=== PATIENT | female | born 1980 | race Caucasian/White ===

== ENCOUNTER → 2016-04-21 | Outpatient (REF) | payer OTHER ==
[~2016-04-21] MED LIST: IBUP80TA PO; PERCOCET PO; PRENTAB74 PO
== END | disposition home or self-care (01) ==
LOC: M SFHCLERA 17:10
PROVIDERS: ATTEND Nurse Practitioner Family
DX: J11.1 Influenza due to unidentified influenza virus with other respiratory manifestations (principal)

== ENCOUNTER → 2017-11-26 | Outpatient (CLI) | payer BC, OTHER | LOC: M LRY 10:20 | DX: S49.91XA Unspecified injury of right shoulder and upper arm, initial encounter (principal); X58.XXXA Exposure to other specified factors, initial encounter; Y92.89 Other specified places as the place of occurrence of the external cause; Y93.9 Activity, unspecified; Y99.9 Unspecified external cause status ==

== ENCOUNTER → 2018-02-24 | Outpatient (REF) | payer OTHER ==
[2018-02-24 10:29] LABS: HEMATOCRIT 38.3 % (36.0-47.0); HEMOGLOBIN 12.7 g/dl (12.0-15.5); MEAN CORPUSCULAR HEMOGLOBIN 31.1 pg (27.0-33.0); MEAN CORPUSCULAR HGB CONC 33.2 g/dl (32.0-36.5); MEAN CORPUSCULAR VOLUME 93.9 fl (80.0-96.0); PLATELET COUNT, AUTOMATED 302 10^3/uL (150-450); RED BLOOD COUNT 4.08 10^6/uL (4.00-5.40); RED CELL DISTRIBUTION WIDTH 12.4 % (11.5-14.5); WHITE BLOOD COUNT 8.4 10^3/uL (4.0-10.0)
[2018-02-24 10:47] LABS: ESTIMATED AVERAGE GLUCOSE 103 MG/DL (60-110); HEMOGLOBIN A1c 5.2 %
[2018-02-24 11:09] LABS: ALBUMIN 3.9 GM/DL (3.2-5.2); ALBUMIN/GLOBULIN RATIO 1.22 (1.00-1.93); ALKALINE PHOSPHATASE 79 U/L (45-117); ALT/SGPT 30 U/L (12-78); ANION GAP 8 MEQ/L (8-16); AST/SGOT 17 U/L (7-37); BILIRUBIN,TOTAL 0.7 MG/DL (0.2-1.0); BLOOD UREA NITROGEN 16 MG/DL (7-18); CALCIUM LEVEL 8.7 MG/DL (8.5-10.1); CARBON DIOXIDE LEVEL 26 MEQ/L (21-32); CHLORIDE LEVEL 104 MEQ/L (98-107); CHOLESTEROL LEVEL 167 MG/DL (<200); CHOLESTEROL RISK RATIO 2.929 (<5); CREATININE FOR GFR 0.63 MG/DL (0.55-1.30); FREE T4 1.12 NG/DL (0.76-1.46); GLOMERULAR FILTRATION RATE > 60.0 (>60); GLUCOSE, FASTING 87 MG/DL (70-100); HDL CHOLESTEROL 57 MG/DL (>40); LDL CHOLESTEROL 101 MG/DL (<100); NON-HDL-C 110 MG/DL; POTASSIUM SERUM 4.3 MEQ/L (3.5-5.1); SODIUM LEVEL 138 MEQ/L (136-145); TOTAL PROTEIN 7.1 GM/DL (6.4-8.2); TRIGLYCERIDES LEVEL 45 MG/DL (<150)
[2018-02-24 11:24] LABS: TOTAL 25(OH) VITAMIN D 33.6 NG/ML (30.0-100.0)
== END ==
LOC: M SFHCPLAZ 08:06
DX: Z00.00 Encounter for general adult medical examination without abnormal findings (principal); R53.83 Other fatigue; Z13.220 Encounter for screening for lipoid disorders; E28.2 Polycystic ovarian syndrome; E55.9 Vitamin D deficiency, unspecified

== ENCOUNTER 2018-04-11 22:18 | Emergency (ER) | payer BC, OTHER ==
[~2018-04-11] VITALS: Ht 144.8 cm; Wt 77.3 kg
[2018-04-11] MEDS ORDERED: ADACEL/BOOSTRIX VACCINE (DIPHTH/PERTUSS/ACELL/TETANUS)0.5ML SYR (90715) IM ONE (23:00)
[2018-04-11 23:05] VITALS: BP 108/61
== END 2018-04-11 23:06 | disposition home or self-care (01) ==
LOC: M ED 22:18
DX: S00.01XA Abrasion of scalp, initial encounter (principal); W22.8XXA Striking against or struck by other objects, initial encounter; Y92.018 Other place in single-family (private) house as the place of occurrence of the external cause

== ENCOUNTER 2018-05-27 12:48 | Day surgery (SDC) | payer BC, OTHER ==
[~2018-05-27] VITALS: Ht 144.8 cm; Wt 73.9 kg
[2018-05-27] MEDS: LR 1,000 ML IV SCH ×2 (04:00→22:12)
[~2018-05-27 12:48] MED LIST changes: +LR 1,000 ML IV ONE
[2018-05-27] MEDS ORDERED: MIDAZOLAM INJ 2 MG/2 ML VIAL (J2250) As Ordered ONE (13:06)
[2018-05-27] MEDS ORDERED: dexameTHASONE 4 MG/ML 1ML VIAL (J1100) As Ordered ONE (13:06)
[2018-05-27] MEDS ORDERED: fentaNYL 250 MCG/5 ML INJECTION (J3010) As Ordered ONE (13:06)
[2018-05-27] MEDS ORDERED: ONDANSETRON 4MG/2ML VIAL (J2405) As Ordered ONE (13:06)
[2018-05-27] MEDS ORDERED: LIDOCAINE 2% INJ 100 MG/5 ML SDV (FOR ANES.) As Ordered ONE (13:06)
[2018-05-27] MEDS ORDERED: ROCURONIUM BROMIDE 50 MG/5 ML VIAL As Ordered ONE ×2 (13:06→17:02)
[2018-05-27] MEDS ORDERED: PROPOFOL 200 MG/20 ML VIAL As Ordered ONE (13:06)
[2018-05-27 13:13] LABS: HEMATOCRIT 38.8 % (36.0-47.0); HEMOGLOBIN 13.1 g/dl (12.0-15.5); MEAN CORPUSCULAR HGB CONC 33.8 g/dl (32.0-36.5); MEAN CORPUSCULAR VOLUME 91.9 fl (80.0-96.0); PLATELET COUNT, AUTOMATED 339 10^3/uL (150-450); RED BLOOD COUNT 4.22 10^6/uL (4.00-5.40); WHITE BLOOD COUNT 9.5 10^3/uL (4.0-10.0)
[2018-05-27 13:43] LABS: HCG, SERUM QUALITATIVE NEGATIVE (NEGATIVE)
[2018-05-27] MEDS ORDERED: METHYLENE BLUE 0.5% (5MG/ML) 10 ML AMP (PROVAYBLUE)(Q9968 PER 1MG) As Ordered ONE (14:51)
[2018-05-27] MEDS ORDERED: HYDROmorphone HCL 2 MG/ML 1ML VIAL (J1170) As Ordered ONE (16:08)
[2018-05-27] MEDS ORDERED: NEOSTIGMINE 10 MG/10 ML VIAL (J2710) As Ordered ONE (16:08)
[2018-05-27] MEDS ORDERED: GLYCOPYRROLATE INJ 0.2 MG/ML 2 ML VIAL As Ordered ONE (16:08)
[2018-05-27] MEDS ORDERED: KETOROLAC 60 MG/2 ML VIAL (J1885) As Ordered ONE (16:22)
[2018-05-27] MEDS ORDERED: SUGAMMADEX SODIUM 500 MG/5 ML VIAL (BRIDION) As Ordered ONE (18:18)
[2018-05-27] MEDS ORDERED: METOCLOPRAMIDE INJ 10MG/2ML VIAL (J2765) As Ordered ONE (18:21)
[2018-05-27] MEDS ORDERED: ceFAZolin 2 GM/D5W 50 ML IV BAG (J0690 PER 500MG) As Ordered ONE (19:35)
[2018-05-27] MEDS ORDERED: MORPHINE 1MG/ML IN 0.9% NACL 100ML IV BAG As Ordered ONE (20:21)
[2018-05-27] MEDS ORDERED: NALBUPHINE HCL 10 MG/ML AMP (J2300) IV PRN (20:30)
[2018-05-27] MEDS ORDERED: NALOXONE INJ 0.4 MG/1 ML VIAL (J2310) IV PRN (20:30)
[2018-05-27] MEDS ORDERED: fentaNYL 100 MCG/2 ML INJECTION (J3010) IV PRN (20:30)
[2018-05-27] MEDS ORDERED: ONDANSETRON 4MG/2ML VIAL (J2405) IV PRN (20:30)
[2018-05-27] MEDS ORDERED: MORPHINE 1MG/ML IN 0.9% NACL 100ML IV BAG IV PRN (20:30)
[2018-05-27] MEDS ORDERED: EPIDURAL/PCA KEYS XX PRN (20:30)
[2018-05-27] MEDS ORDERED: diphenhydrAMINE INJ 50MG/ML VIAL (J1200) IV PRN (20:30)
[2018-05-27] MEDS ORDERED: METOCLOPRAMIDE INJ 10MG/2ML VIAL (J2765) IV PRN (20:30)
[2018-05-27] MEDS ORDERED: LR 1,000 ML IV SCH (20:30)
[2018-05-27] MEDS ORDERED: PERCOCET 5MG/325MG TAB PO PRN (20:30)
[2018-05-27 22:00] VITALS: BP 117/71
[2018-05-27 22:30] VITALS: BP 117/66
[2018-05-27 23:00] VITALS: BP 109/64
[2018-05-28] VITALS: BP 114/63
[2018-05-28 01:00] VITALS: BP 110/61
[2018-05-28 02:00] VITALS: BP 104/55
[2018-05-28 03:00] VITALS: BP 106/58
[2018-05-28 06:52] LABS: HEMATOCRIT 29.2 % (36.0-47.0); MEAN CORPUSCULAR HEMOGLOBIN 30.8 pg (27.0-33.0); MEAN CORPUSCULAR HGB CONC 32.9 g/dl (32.0-36.5); MEAN CORPUSCULAR VOLUME 93.6 fl (80.0-96.0); PLATELET COUNT, AUTOMATED 261 10^3/uL (150-450); RED BLOOD COUNT 3.12 10^6/uL (4.00-5.40); WHITE BLOOD COUNT 13.2 10^3/uL (4.0-10.0)
[2018-05-28 06:55] LABS: HEMOGLOBIN 9.6 g/dl (12.0-15.5)
[2018-05-28 08:00] VITALS: BP 86/48
[2018-05-28] MEDS ORDERED: IBUPROFEN 600 MG TAB PO PRN (08:45)
[2018-05-28] MEDS ORDERED: NORCO, ANEXSIA 5/325MG TABLET (HYDROcodone/ACETAMINOPHEN) PO PRN (08:45)
[2018-05-28 09:30] VITALS: BP 86/48
--- NOTE | 2018-05-28 09:55 | RO ---
DATE OF PROCEDURE: 05/27/2018 PREPROCEDURE DIAGNOSES: Pain, bleeding and immobile uterus. POSTPROCEDURE DIAGNOSES: Pain, bleeding and immobile uterus with extensive adhesions, atypical adhesions noted. PROCEDURE: Robotic assisted hysterectomy with salpingectomy and cystourethroscopy for evaluation of the bladder abnormalities. SURGEON: Dr. Christy Osorio WELDING LEAD BURNER: None. ANESTHESIA: General endotracheal anesthesia. BRIEF DESCRIPTION OF PROCEDURE AND FINDINGS: Jyoti was brought to the operating room where sufficient general endotracheal anesthesia was induced. She was prepped, draped and positioned in the usual sterile fashion. She then had a uterine manipulator placed. We reached the cervix by palpation because as had been diagnosed preoperatively, she had a really immobile high cervix and uterus and could not actually see it from below using the weighted, but when we grasped it with tenaculum, we were able to and the uterus sounded to 11. We then placed the uterine manipulator and the Olivas catheter with the ability to backfill, then turned our attention to the abdomen. A transverse semilunar incision was then made below the umbilicus. Sharp and blunt dissection were continued through the subcutaneous tissue to the level of the rectus fascia which is elevated with Rafael clamps and transversely incised. Then the peritoneum bluntly entered. #0 Vicryl retention sutures were placed and Wiley cannula was placed under direct visualization in an open laparoscopic technique and CO2 insufflation was then begun. After adequate CO2 insufflation, the peritoneal cavity was visualized. There were some minor omental adhesions but then there were extensive dense, thick, tough adhesions of the uterus to the anterior abdominal wall in a transverse fashion maybe a quarter to half way down the anterior uterine wall. The ovaries were normal in appearance. The fallopian tubes had Filshie clips and some minor scarring consistent with her tubal history but were otherwise normal in appearance. There was no difficulty in taking down some of the filmy adhesions of the bowel and omentum to free that up so that we could get access to the tubes. Prior to that, we placed two left sided, one right side port for the robot. We then placed her in Trendelenburg and docked the robot as is typical and I moved to the console. Working from the console, we freed up those adhesions as already noted. The minor ones, ___omentum, bladder___ and bowel not using cautery just using cold scissors, and then isolated the left fallopian tube, we carefully cauterized and transected the mesentery to the tube without injuring the ovary and freed that up to the cornu. We then went to cauterize and transect the utero-ovarian suspensory ligament and there was some added vasculature there, much thicker vessels than are typically present, and then went to cauterize and transect the round as well and again from another set of artery and vein, again much thicker than is typically present but repeat evaluation showed no evidence that this was actually ureter and of course it did bleed slightly as we were dissecting. We turned our attention to the patient's right side, again freed the fallopian tube from the mesentery and left it attached to the uterus along with the Filshie clip that was there, and then again transected the utero-ovarian suspensory ligament and the large 6 mm vessels had been recruited to utero-ovarian suspensory ligament. Two sets there, again much more blood supply than is typically seen but although there appeared to be a vein and artery, the artery was clearly pulsing and running into the uterus rather than along the uterus so did not appear to be some kind of abnormal ureter but rather just redundant blood supply. I do not know whether the patient ever had her uterine vasculature tied off at any of her sections but certainly the thought occurred to me that she may have had that other blood supply disrupted because of this recruitment and again we ran into more vessels, just the vessel of Bossman in the round ligament but yet again another set of vessels. Having finally freed those, we began to dissect anteriorly. We worked cold because we had trouble really looking in the bladder. We would backfill and over and above where these adhesions were, the bladder filled over and appeared to be away but it extended cephalad anteriorly from where these adhesions attached to the uterus and so we erred on the side of caution and really peeled down the visceral peritoneum of the uterus rather than going toward the bladder and we worked cold so this was very tedious work with slow progress. As we were able, we cauterized the blood supply to the uterus as well and again we ran into far more vasculature than expected but we worked higher than typical and then just wedged out a section to try to stay as well away from ureters as possible and we had the ability to backfill the bladder so we felt we had a good identification of location and we then continued very carefully this dissection. The uterus was very much immobile and eventually in efforts to elevate the cervix, we ended up perforating with the manipulator, that did not happen until about longterm or a little more than longterm through the case and in part because the uterus really was not mobile very much. We continued our progress and we were eventually able to visualize posteriorly and feel that we had some blanching of the uterus and so the blood supply somewhat controlled and we made our initial colpotomy posteriorly and of course dissected down over those ureterosacrals and sort of dissected from above those leaving that wedge for support of the vaginal cuff and in an effort to minimize the risk of injuring ureter due to her atypical anatomy. As we continued dissecting anteriorly, it became apparent that that band of tissue was just a flat solid band, really obscuring that anatomy anteriorly as well as that extra blood supply which we ran into in multiple locations. We continued the dissection working cold so as not to injure bladder and eventually reached another plane and had a little more mobility of the uterus and were able to complete colpotomy and then remove the uterus through the vaginal cuff leaving it in the vagina to maintain pneumo. We then used V-loc suture to close the cuff being careful to incorporate the uterosacrals and to get good angle closure but also to incorporate vaginal wall because anteriorly as shown in the picture, one the uterus was released from those adhesions, there was a large segment of bladder wall visible. We were able to backfill and see that we did not have any perforation to this and we were able to see the Olivas but the band of adhesions was actually denser than the combined bands of anterior and posterior vaginal wall and so stretching anteriorly above the bladder, that scar tissue consistent with previous section is present and now the bladder is much more free but we worked careful to resupport the cuff to those ureterosacrals since of course it was no longer attached to the anterior tunnel wall. Having closed the cuff and reincorporated the uterosacrals and confirmed that we did not have an injury to the bladder, I did want to check the ureters because of the abnormality that the patient had and the scarring of the bladder, so we leveled it off, gave some Methylene blue and did a cystourethroscopy and in fact her right ureter is totally normal. She had normal jets of urine from the left but there is remodeling of the trigone with the ureter on the patient's left being midline and the distance of the trigone being closer to the urethra than on the right side so she is asymmetrical there. I believe that is remodeling rather than anything to do with today's case because there is no puckering of the wall anymore. I strongly suspect it has to do with years of that bladder being trapped in that scar tissue and the previous surgical changes but she had normal jets of urine bilaterally and in absence of any kind of cut or injury to the bladder fortunately. We then ended the cystoscopy and went back up and closed those robot wounds. Of course the CO2 had been allowed to escape the abdomen already. I closed the umbilical wound with #0 Vicryl retention sutures at the fascia and then #3-0 Vicryl in a subcuticular stitch at the skin which was then also used on the other three wounds and dry sterile dressings were then applied. Estimated blood loss for the procedure about 100 mL. Fluid replacement was Crystalloid. Complications: None but she did have personal abnormal anatomy found which resulted in a change of the case with the addition of the cystourethroscopy. CONDITION AND DISPOSITION: Jyoti tolerated the procedure well and was recovering in the recovery room in good condition. BRO
== END 2018-05-28 10:30 | disposition home or self-care (01) ==
LOC: M SDC 12:48 → M PED 21:44 → M SDC 05-28 10:30
PROVIDERS: ATTEND Obstetrics & Gynecology
DX: R10.2 Pelvic and perineal pain (principal); N94.10 Unspecified dyspareunia; E28.2 Polycystic ovarian syndrome; E66.9 Obesity, unspecified; G43.909 Migraine, unspecified, not intractable, without status migrainosus
CPT/HCPCS: 36415; 58571; 84703; 85027; 86850; 86900; 86901; 88307; 96360; 96361; J0690; J1100; J1170; J1885; J2250; J2405; J2765; J3010; Q9968

== ENCOUNTER 2018-07-08 11:08 | Day surgery (SDC) | payer BC, OTHER ==
[~2018-07-08] VITALS: Ht 149.9 cm; Wt 72.7 kg
[~2018-07-08 11:08] MED LIST changes: -LR 1,000 ML IV ONE
[2018-07-08] MEDS ORDERED: ONDANSETRON 4MG/2ML VIAL (J2405) IV ONE (12:00)
[2018-07-08] MEDS ORDERED: KETOROLAC 30 MG/ML VIAL (J1885) IV ONE (12:00)
[2018-07-08] MEDS ORDERED: NS 1,000 ML IV ONE (12:00)
--- NOTE | 2018-07-08 12:33 | REP ---
CT of the abdomen pelvis without IV or bowel contrast: Comparison is 11/19/2019 fifth teen. There is a 6.5 x 3.3 cm calculus in the distal left ureter at the UVJ. There is right hydroureter and hydronephrosis. There is a nonobstructive 8.4 mm calculus in in the right renal pelvis at the lower pole. There is a tiny 2 mm nonobstructive left renal calculus. There is no left hydronephrosis or hydroureter. There is no left ureteral calculus. The visualized lung cabrera are unremarkable. The unenhanced liver, gallbladder, pancreas, spleen, adrenals are unremarkable. The abdominal aorta, bowel and mesentery are unremarkable. Pelvis: There is an appendectomy. The terminal ileum is unremarkable. There is a hysterectomy. The vaginal cuff and adnexa are unremarkable. The bladder is unremarkable. There is no adenopathy or ascites. The pelvic bowel loops are unremarkable. Impression: Obstructive calculus in the distal right ureter at the UVJ measuring 3.3 x 6.5 cm. There is right hydronephrosis and hydroureter. Nonobstructive 2 mm left renal calculus. Appendectomy and hysterectomy. Electronically Signed by Kurt Saba MD 07/08/2018 12:23 P
[2018-07-08 13:04] LABS: ALBUMIN 4.3 GM/DL (3.2-5.2); ALT/SGPT 20 U/L (12-78); AMYLASE 49 U/L (25-115); BILIRUBIN,DIRECT 0.2 MG/DL (0.0-0.2); BILIRUBIN,TOTAL 0.9 MG/DL (0.2-1.0); BLOOD UREA NITROGEN 21 MG/DL (7-18); CALCIUM LEVEL 9.2 MG/DL (8.5-10.1); CARBON DIOXIDE LEVEL 27 MEQ/L (21-32); CHLORIDE LEVEL 103 MEQ/L (98-107); CREATININE FOR GFR 0.73 MG/DL (0.55-1.30); GLOMERULAR FILTRATION RATE > 60.0 (>60); GLUCOSE, FASTING 92 MG/DL (70-100); LIPASE 98 U/L (73-393); POTASSIUM SERUM 4.2 MEQ/L (3.5-5.1); SODIUM LEVEL 137 MEQ/L (136-145); TOTAL PROTEIN 7.7 GM/DL (6.4-8.2)
[2018-07-08 13:06] LABS: BASO % 0.2 % (0.0-1.0); HEMATOCRIT 38.7 % (36.0-47.0); HEMOGLOBIN 12.8 g/dl (12.0-15.5); LYMPH # 1.1 10^3/uL (1.5-4.5); LYMPH % 4.9 % (24.0-44.0); MEAN CORPUSCULAR HEMOGLOBIN 31.3 pg (27.0-33.0); MEAN CORPUSCULAR HGB CONC 33.1 g/dl (32.0-36.5); MEAN CORPUSCULAR VOLUME 94.6 fl (80.0-96.0); MONO # 1.2 10^3/uL (0.0-0.8); MONO % 5.8 % (0.0-5.0); NEUTROPHILS # 18.8 10^3/uL (1.8-7.7); NEUTROPHILS % 88.8 % (36.0-66.0); PLATELET COUNT, AUTOMATED 302 10^3/uL (150-450); RED BLOOD COUNT 4.09 10^6/uL (4.00-5.40); WHITE BLOOD COUNT 21.2 10^3/uL (4.0-10.0)
[2018-07-08] MEDS ORDERED: MORPHINE 4 MG/ML 1ML VIAL/SYRINGE (J2270) IV ONE (13:30)
[2018-07-08] MEDS ORDERED: MIDAZOLAM INJ 2 MG/2 ML VIAL (J2250) As Ordered ONE (15:36)
[2018-07-08] MEDS ORDERED: PROPOFOL 200 MG/20 ML VIAL As Ordered ONE ×2 (15:36→15:38)
[2018-07-08] MEDS ORDERED: fentaNYL 100 MCG/2 ML INJECTION (J3010) As Ordered ONE (15:36)
[2018-07-08] MEDS ORDERED: LIDOCAINE 2% INJ 100 MG/5 ML SDV (FOR ANES.) As Ordered ONE (15:36)
[2018-07-08] MEDS ORDERED: CONRAY-60 60% 50ML VIAL (Q9961) As Ordered ONE (15:36)
[2018-07-08] MEDS ORDERED: cefTRIAXone SOD 1 GM VIAL (J0696) As Ordered ONE (15:40)
--- NOTE | 2018-07-08 15:44 | SMCUROLCON ---
Urology Consultation General Date of Consultation 07/08/18 Reason For Consultation This patient is seen for Ureterolithias. History of Present Illness This is a 38 y/o F w/ a history of kidney stones, presenting to the ER w/ acute onset right flank pain x 24 hrs. She also notes n/v, but denies dysuria. She denies fever or chills. A CT A/P obtained in the ER was notable for an obstructing 6mm right UVJ stone as well as a nonobstructing 8mm right kidney stone. Her WBC was elevated to 20,000 and her UA was notable for 14 WBCs. Despite several doses of IV pain medication, her pain has been difficult to control. Past Medical History Medical History Nephrolithiasis Surgical Hstory Ureteroscopy ESWL Hysterectomy Appendectomy Medications Current Medications Current Medications Home Med (Med Rec Complete!) ASDIRECTED XX ; Start 07/08/18 at 14:30; Stop 07/08/18 at 14:30; Status DC Allergies Allergies: Coded Allergies: No Known Allergies (Unverified , 07/08/18) Review of Systems Constitutional: Denies: Fever, Chills Skin: Denies: Rash, Lesions, Breakdown, Nail Changes Pulmonary: Denies: Dyspnea, Cough Cardiovascular: Denies Chest Pain, Denies Palpitations Gastrointestinal: Reports: Nausea, Vomiting Genitourinary: Denies: Dysuria, Frequency, Incontinence, Hematuria Musculoskeletal: Reports: Back Pain (right flank pain) Psych: Reports: Mood Normal Physical Examination General Exam: Alert, Cooperative, No Acute Distress Chest Exam: Clear to auscultation Heart Exam: Rate Normal, Regular Rhythm Skin Exam: Nl turgor and temperature Neuro Exam: Normal Speech Psych Exam: Mental status NL, Mood NL Vital Signs/I&O Vital Signs Date Time Temp Pulse Resp B/P (MAP) Pulse Ox O2 Delivery O2 Flow Rate FiO2 07/08/18 14:50 99.3 70 17 116/59 (78) 99 Room Air Laboratory Data 24H Labs Laboratory Tests 2 07/08/18 12:20: Immature Granulocyte % (Auto) 0.3, White Blood Count 21.2H, Red Blood Count 4.09, Hemoglobin 12.8, Hematocrit 38.7, Mean Corpuscular Volume 94.6, Mean Corpuscular Hemoglobin 31.3, Mean Corpuscular Hemoglobin Concent 33.1, Red Cell Distribution Width 12.3, Platelet Count 302, Neutrophils (%) (Auto) 88.8H, Lymphocytes (%) (Auto) 4.9L, Monocytes (%) (Auto) 5.8H, Eosinophils (%) (Auto) 0.0, Basophils (%) (Auto) 0.2, Neutrophils # (Auto) 18.8H, Lymphocytes # (Auto) 1.1L, Monocytes # (Auto) 1.2H, Eosinophils # (Auto) 0.0, Basophils # (Auto) 0.0, Nucleated Red Blood Cells % (auto) 0.0, Anion Gap 7L, Glomerular Filtration Rate > 60.0, Calcium Level 9.2, Aspartate Amino Transf (AST/SGOT) 10, Alanine Aminotransferase (ALT/SGPT) 20, Alkaline Phosphatase 83, Total Bilirubin 0.9, Direct Bilirubin 0.2, Total Protein 7.7, Albumin 4.3, Albumin/Globulin Ratio 1.26, Amylase Level 49, Lipase 98 07/08/18 13:29: Urine Color YELLOW, Urine Appearance TURBIDH, Urine pH 5.0, Urine Specific Kodak 1.025, Urine Protein 1+H, Urine Glucose (UA) NEGATIVE, Urine Ketones 1+H, Urine Blood 3+H, Urine Nitrite NEGATIVE, Urine Bilirubin NEGATIVE, Urine Urobilinogen 0.2, Urine Leukocyte Esterase NEGATIVE, Urine WBC (Auto) 14H, Urine RBC (Auto) 36H, Urine Hyaline Casts (Auto) 0, Urine Bacteria (Auto) NEGATIVE, Urine Squamous Epithelial Cells 38, Urine Amorphous Sediment MODERATEH, Urine Mucus (Auto) LARGE, Urine Sperm (Auto) CBC/BMP Laboratory Tests 07/08/18 12:20 Red Blood Count 4.09, Mean Corpuscular Volume 94.6, Mean Corpuscular Hemoglobin 31.3, Mean Corpuscular Hemoglobin Concent 33.1, Red Cell Distribution Width 12.3, Neutrophils (%) (Auto) 88.8 H, Lymphocytes (%) (Auto) 4.9 L, Monocytes (%) (Auto) 5.8 H, Eosinophils (%) (Auto) 0.0, Basophils (%) (Auto) 0.2, Neutrophils # (Auto) 18.8 H, Lymphocytes # (Auto) 1.1 L, Monocytes # (Auto) 1.2 H, Eosinop hils # (Auto) 0.0, Basophils # (Auto) 0.0 Microbiology Microbiology 07/08/18 Urine Culture, Received Pending Assessment This is a 38 y/o F w/ an obstructing 6mm distal right ureteral stone and concern for a UTI given a WBC of 20,000. I recommended that we take her to the OR today for cystoscopy and right ureteral stent placement. After a discussion of the risks and benefits of the procedure, informed consent was signed. Plan - plan OR for cysto and right ureteral stent placement - 1g ancef preop - urine culture already obtained - NPO until OR KEE RYAN MD Jul 08, 2018 15:44
[2018-07-08] MEDS ORDERED: LIDOCAINE 2% 5ML JELLY UROJET As Ordered ONE (15:59)
--- NOTE | 2018-07-08 16:25 | ROOPDOC ---
[facility] Report Of Operation Report of Operation DATE OF PROCEDURE: 07/08/18 PREPROCEDURE DIAGNOSIS: Obstructing right ureteral stone. POSTPROCEDURE DIAGNOSIS: Obstructing right ureteral stone. PROCEDURE: Cystoscopy, right ureteral stent placement, right retrograde pyelogram with intraoperative interpretation of images. SURGEON: Dr. Kee Ryan SENIOR PRODUCTION MANAGER: None. ANESTHESIA: MAC. OPERATIVE INDICATIONS: This is an 38-year-old female presenting with a 6mm obstructing distal right ureteral stone and concern for a possible urinary tract infection. It was recommended that she be brought to the operating room for the above listed procedure. DESCRIPTION OF PROCEDURE: The patient was brought to the operating room where MAC anesthesia was administered. Prophylactic antibiotics were infused. She was then placed in dorsal lithotomy position and prepped and draped in the usual sterile fashion. At this point, a rigid cystoscope was inserted into the urethral meatus and advanced into the bladder. Once inside the bladder, an open ended ureteral catheter was advanced up the right collecting system. Urine was then aspirated from the right renal pelvis to be sent for culture. Of note, the urine did not appear purulen t. Next a retrograde pyelogram was performed and was notable for mild to moderate right hydronephrosis with no extravasation. I then advanced the wire back up the right collecting system and removed the open ureteral catheter. The wire was then utilized to advance a 7 Swedish x 22-32 cm JJ ureteral stent up into the right collecting system. The wire was then removed and there were adequate curls of the stent in the right renal pelvis and in the bladder. A 16Fr Olivas catheter was then inserted into the bladder and connected to gravity drainage. This marked the conclusion of the procedure. The patient was then taken out of the dorsal lithotomy position, awakened from anesthesia and transported to the recovery room in stable condition. Estimated blood loss: 5 mL. Complications: None. Specimen: Urine from right renal pelvis for culture. Plan: I will observe the patient overnight. If her white blood cell count is decreasing tomorrow and she appears well clinically, I will discharge her with the plan to have her follow up in a few weeks for right ureteroscopy with laser lithotripsy. KEE RYAN MD Jul 08, 2018 16:25
[2018-07-08] MEDS ORDERED: ACETAMINOPHEN TAB 650MG DOSE (2X325MG) PO PRN (16:30)
[2018-07-08] MEDS ORDERED: MORPHINE 4 MG/ML 1ML VIAL/SYRINGE (J2270) IV PRN (16:30)
[2018-07-08] MEDS ORDERED: ONDANSETRON 4MG/2ML VIAL (J2405) IV PRN ×2 (16:30→17:00)
[2018-07-08] MEDS ORDERED: PERCOCET 5MG/325MG TAB PO PRN ×2 (16:30→17:00)
[2018-07-08] MEDS ORDERED: NS 1,000 ML IV SCH (16:45)
[2018-07-08 17:00] VITALS: BP 100/66
[2018-07-08] MEDS ORDERED: fentaNYL 100 MCG/2 ML INJECTION (J3010) IV PRN (17:00)
[2018-07-08] MEDS ORDERED: LR 1,000 ML IV SCH (17:00)
[2018-07-08] MEDS ORDERED: METOCLOPRAMIDE INJ 10MG/2ML VIAL (J2765) IV PRN (17:00)
[2018-07-08] MEDS: DOCUSATE SODIUM 100 MG CAP PO SCH (21:04)
[2018-07-08 22:00] VITALS: BP 123/73
[2018-07-08] MEDS: PERCOCET 5MG/325MG TAB PO PRN (22:10)
[2018-07-09 06:00] VITALS: BP 102/63
[2018-07-09] MEDS: PERCOCET 5MG/325MG TAB PO PRN (06:16)
[2018-07-09 06:45] LABS: BLOOD UREA NITROGEN 22 MG/DL (7-18); CALCIUM LEVEL 8.1 MG/DL (8.5-10.1); CARBON DIOXIDE LEVEL 25 MEQ/L (21-32); CHLORIDE LEVEL 109 MEQ/L (98-107); CREATININE FOR GFR 0.62 MG/DL (0.55-1.30); GLOMERULAR FILTRATION RATE > 60.0 (>60); GLUCOSE, FASTING 91 MG/DL (70-100); POTASSIUM SERUM 3.7 MEQ/L (3.5-5.1); SODIUM LEVEL 141 MEQ/L (136-145)
[2018-07-09 07:08] LABS: HEMATOCRIT 31.8 % (36.0-47.0); MEAN CORPUSCULAR HEMOGLOBIN 30.4 pg (27.0-33.0); MEAN CORPUSCULAR HGB CONC 32.1 g/dl (32.0-36.5); MEAN CORPUSCULAR VOLUME 94.9 fl (80.0-96.0); PLATELET COUNT, AUTOMATED 256 10^3/uL (150-450); RED BLOOD COUNT 3.35 10^6/uL (4.00-5.40); WHITE BLOOD COUNT 9.8 10^3/uL (4.0-10.0)
[2018-07-09 07:16] LABS: HEMOGLOBIN 10.2 g/dl (12.0-15.5)
--- NOTE | 2018-07-09 08:15 | REP ---
Retrograde pyelogram: Two views. History: Ureteral stone. 11 seconds of fluoroscopy time is reported. Findings: A sequence of two last image hold fluoroscopically obtained spot radiographs of the abdomen document ureteral cannulation, contrast injection, and double pigtailed ureteral stent placement. There are no laterality markers visible. Electronically Signed by Haroon Yap MD 07/09/2018 07:55 P
[2018-07-09] MEDS ORDERED: NON-325T5 PO (08:52)
[2018-07-09] MEDS ORDERED: KETO10TAB PO (08:55)
[2018-07-09] MEDS ORDERED: CIPR-249 PO (08:58)
[2018-07-09] MEDS: DOCUSATE SODIUM 100 MG CAP PO SCH (09:01)
== END 2018-07-09 11:00 | disposition home or self-care (01) ==
LOC: M ED 11:08 → M SDC 14:07 → M MS5PR 17:00 → M SDC 07-09 11:00
PROVIDERS: ATTEND Urology
DX: N20.1 Calculus of ureter (principal)
CPT/HCPCS: 36415; 52332; 74176; 74420; 80048; 80076; 81001; 82150; 83690; 85025; 85027; 87086; 96361; 96374; 96375; 96376; 99284; C1769; C2617; J0696; J1885; J2250; J2270; J2405; J2765; J3010; Q9961

== ENCOUNTER 2018-07-11 21:40 | Emergency (ER) | payer BC, OTHER ==
[~2018-07-11] VITALS: Ht 147.3 cm; Wt 52.7 kg
[~2018-07-11 21:40] MED LIST changes: +CIPR-249 PO; +KETO10TAB PO; +NON-325T5 PO
[2018-07-11] MEDS ORDERED: COLA100C5 PO (21:45)
[2018-07-11] MEDS ORDERED: MORPHINE 4 MG/ML 1ML VIAL/SYRINGE (J2270) IV ONE (22:00)
[2018-07-11] MEDS ORDERED: KETOROLAC 30 MG/ML VIAL (J1885) IV ONE (22:00)
[2018-07-11] MEDS ORDERED: METOCLOPRAMIDE INJ 10MG/2ML VIAL (J2765) IV ONE (22:00)
[2018-07-11] MEDS ORDERED: NS 1,000 ML IV ONE (22:00)
[2018-07-11 22:10] LABS: BASO % 0.3 % (0.0-1.0); EOS # 0.2 10^3/uL (0.0-0.50); EOS % 1.6 % (0.0-3.0); HEMATOCRIT 37.4 % (36.0-47.0); HEMOGLOBIN 12.2 g/dl (12.0-15.5); LYMPH # 3.3 10^3/uL (1.5-4.5); LYMPH % 30.5 % (24.0-44.0); MEAN CORPUSCULAR HEMOGLOBIN 30.4 pg (27.0-33.0); MEAN CORPUSCULAR HGB CONC 32.6 g/dl (32.0-36.5); MEAN CORPUSCULAR VOLUME 93.3 fl (80.0-96.0); MONO # 0.9 10^3/uL (0.0-0.8); MONO % 7.8 % (0.0-5.0); NEUTROPHILS # 6.5 10^3/uL (1.8-7.7); NEUTROPHILS % 59.5 % (36.0-66.0); PLATELET COUNT, AUTOMATED 322 10^3/uL (150-450); RED BLOOD COUNT 4.01 10^6/uL (4.00-5.40); WHITE BLOOD COUNT 10.9 10^3/uL (4.0-10.0)
[2018-07-11 22:37] LABS: BLOOD UREA NITROGEN 13 MG/DL (7-18); C REACTIVE PROTEIN QUANTITATIV 1.22 MG/DL (0.00-0.30); CALCIUM LEVEL 8.6 MG/DL (8.5-10.1); CARBON DIOXIDE LEVEL 26 MEQ/L (21-32); CHLORIDE LEVEL 107 MEQ/L (98-107); CREATININE FOR GFR 0.71 MG/DL (0.55-1.30); GLOMERULAR FILTRATION RATE > 60.0 (>60); GLUCOSE, FASTING 96 MG/DL (70-100); POTASSIUM SERUM 3.7 MEQ/L (3.5-5.1); SODIUM LEVEL 139 MEQ/L (136-145)
--- NOTE | 2018-07-11 23:31 | REPVR ---
EXAM: CT Abdomen and Pelvis Without Contrast EXAM DATE/TIME: 07/11/2018 10:09 PM CLINICAL HISTORY: 38 years old, female; Pain; Abdominal pain; Flank; Lower; Prior surgery; Surgery date: 3-7 days post-operative; Additional info: Right lower flank pain, recent stent placement TECHNIQUE: Imaging protocol: Axial computed tomography images of the abdomen and pelvis without contrast. Coronal and sagittal reformatted images were created and reviewed. Radiation optimization: All CT scans at this facility use at least one of these dose optimization techniques: automated exposure control; mA and/or kV adjustment per patient size (includes targeted exams where dose is matched to clinical indication); or iterative reconstruction. COMPARISON: CT ABD PELVIS W/O CONTRAST 07/08/2018 11:58 AM FINDINGS: Lower thorax: Small hiatal hernia. ABDOMEN: Liver: Unremarkable. Gallbladder and bile ducts: No radiodense gallstones. No biliary ductal dilatation. Pancreas: Unremarkable. Spleen: Unremarkable. Adrenals: Unremarkable. Kidneys and ureters: Right ureteral stent in place. Mild right-sided hydroureteronephrosis and perinephric/periureteral edema. Nonobstructing bilateral renal calculi. Stomach and bowel: Moderate amount of retained stool in the colon. Colonic diverticulosis without evidence of diverticulitis. No obstruction. No bowel wall thickening. No pneumatosis. Appendix: Appendix not identified with certainty but no right lower quadrant inflammatory change to suggest acute appendicitis. PELVIS: Bladder: Mild circumferential urinary bladder wall thickening, possibly secondary to underdistention. Reproductive: Status post hysterectomy. ABDOMEN and PELVIS: Intraperitoneal space: Trace nonspecific free pelvic fluid, likely physiologic and/or reactive. No organized fluid collection. No free air. Bones/joints: No acute osseous abnormality. Mild degenerative changes. Soft tissues: Small, fat containing left paraumbilical hernia. Vasculature: Unremarkable. No aneurysm. Lymph nodes: No pathologically enlarged lymph nodes. IMPRESSION: 1. Right ureteral stent in place. Mild right-sided hydroureteronephrosis and perinephric/periureteral edema. Infection cannot be excluded without intravenous contrast. 2. Nonobstructing right renal calculus. 3. Additional findings, as above. Electronically signed by: Nick Alexis On 07/11/2018 23:31:24 PM
[2018-07-12] MEDS ORDERED: cefTRIAXone SOD 1 GM in D5W MINI-BAG PLUS 50 ML IV ONE (00:45)
[2018-07-12] MEDS ORDERED: METOCLOPRAMIDE 10 MG TAB PO ONE (00:45)
[2018-07-12] MEDS ORDERED: OXYCODONE/APAP 5MG/325MG(BULK FOR ED) 1 TABLET PO ONE (00:45)
[2018-07-12] MEDS ORDERED: PERC5TAB12 PO (01:19)
[2018-07-12] MEDS ORDERED: REGL10TA6 PO (01:19)
[2018-07-12] MEDS ORDERED: MACR100C43 PO (01:19)
[2018-07-12 01:20] VITALS: BP 97/63
--- NOTE | 2018-07-12 13:39 | ED PDOC ---
Post-Departure Follow-Up dr vaz and bob grullon faxed formal report of ct abd/p for fu Julieta Brown MD Jul 12, 2018 13:39
== END 2018-07-12 01:23 | disposition home or self-care (01) ==
LOC: M ED 21:40
DX: N39.0 Urinary tract infection, site not specified (principal); Z87.442 Personal history of urinary calculi; Z96.0 Presence of urogenital implants
CPT/HCPCS: 74176; 80048; 81001; 85025; 86140; 87088; 96361; 96365; 96375; 99284; J0696; J1885; J2270; J2765

== ENCOUNTER 2018-07-16 09:44 | Day surgery (SDC) | payer BC, OTHER ==
[~2018-07-16] VITALS: Ht 149.9 cm; Wt 72.6 kg
[~2018-07-16 09:44] MED LIST changes: +COLA100C5 PO; +GLYCOPYRROLATE INJ 0.2 MG/ML 2 ML VIAL As Ordered ONE; +KETOROLAC 60 MG/2 ML VIAL (J1885) As Ordered ONE; +LIDOCAINE 2% INJ 100 MG/5 ML SDV (FOR ANES.) As Ordered ONE; +MACR100C43 PO; +MIDAZOLAM INJ 2 MG/2 ML VIAL (J2250) As Ordered ONE; +NEOSTIGMINE 10 MG/10 ML VIAL (J2710) As Ordered ONE; +ONDANSETRON 4MG/2ML VIAL (J2405) As Ordered ONE; +PERC5TAB12 PO; +PROPOFOL 200 MG/20 ML VIAL As Ordered ONE; +REGL10TA6 PO; +ROCURONIUM BROMIDE 50 MG/5 ML VIAL As Ordered ONE; +dexameTHASONE 4 MG/ML 1ML VIAL (J1100) As Ordered ONE; +fentaNYL 100 MCG/2 ML INJECTION (J3010) As Ordered ONE
[2018-07-16] MEDS ORDERED: CLINDAMYCIN 900 MG in APPROPRIATE DILUENT 1 EA IV ONE (10:30)
[2018-07-16] MEDS ORDERED: SCOPOLAMINE 1MG TRANSDERMAL PATCH As Ordered ONE (10:50)
[2018-07-16] MEDS ORDERED: LR 1,000 ML IV ONE (11:00)
[2018-07-16] MEDS ORDERED: SCOPOLAMINE 1MG TRANSDERMAL PATCH TOP ONE (11:00)
[2018-07-16] MEDS ORDERED: CONRAY-60 60% 50ML VIAL (Q9961) As Ordered ONE (13:57)
[2018-07-16] MEDS ORDERED: fentaNYL 100 MCG/2 ML INJECTION (J3010) IV PRN (14:30)
[2018-07-16] MEDS ORDERED: ONDANSETRON 4MG/2ML VIAL (J2405) IV PRN (14:30)
[2018-07-16] MEDS ORDERED: PERCOCET 5MG/325MG TAB PO PRN ×2 (14:30)
[2018-07-16] MEDS ORDERED: LR 1,000 ML IV SCH (14:30)
[2018-07-16] MEDS ORDERED: HYDROMORPHONE HCL 0.5 MG/ 0.5 ML SYRINGE (J1170 PER 1) IV PRN (14:30)
--- NOTE | 2018-07-16 14:50 | REP ---
Retrograde pyelogram: There is a single intraoperative fluoroscopic view demonstrating a guidewire on the right. There are no other images. Fluoroscopic exposure time is 5 seconds. Fluoroscopic images are performed with last image hold technology and require no additional radiation. Electronically Signed by Kurt Saba MD 07/16/2018 02:19 P
--- NOTE | 2018-07-16 15:42 | RO ---
DATE OF PROCEDURE: 07/16/2018 PREPROCEDURE DIAGNOSIS: Kidney stones. POSTPROCEDURE DIAGNOSIS: Kidney stones. PROCEDURE: Cystoscopy, right ureteroscopy with laser lithotripsy and basket extraction of stones, right retrograde pyelogram and intraoperative interpretation of images, right ureteral stent removal. SURGEON: Ze Maddox MD YOUTH CARE WORKER: None. ANESTHESIA: General. OPERATIVE INDICATIONS: This is a 38-year-old female who was brought to the operating room a little over a week ago and had a right ureteral stent placed for an obstructing ureteral stone and possible urinary tract infection. She was brought to the operating room today for definitive management of her stones. DESCRIPTION OF PROCEDURE: The patient was brought to the operating room and general anesthesia was induced. Culture specific antibiotics were infused. She was then placed in the dorsal lithotomy position and prepped and draped in the usual sterile fashion. A rigid cystoscope was inserted into the urethral meatus and advanced to the bladder. The previously placed stent was seen. It was grasped and withdrawn until the distal end was protruding from the urethral meatus. We then advanced the guidewire up the right collecting system and the stent was then removed leaving the wire in place. I then went up the right collecting system with a short semi-rigid ureteroscope and within the distal ureter an approximately 5 mm to 6 mm stone was seen. The stone was then grasped with a basket and withdrawn. I then examined the more proximal ureter and no other stones were seen. I then advanced the ureteral access sheath over the wire up the right collecting system. I went up the access sheath with a flexible ureteroscope and examined the kidney thoroughly. Within a lower pole calyx, an approximately 8 mm to 9 mm stone was seen. The stone was then fragmented into smaller pieces using 200 Micron Laser Fiber. All other fragments were then removed using a basket. Once satisfied that all the stone fragments were removed, a retrograde pyelogram was performed and was notable for a mild to moderate right hydronephrosis with no extravasation. I then withdrew the ureteroscope along with access sheath and no additional stones were seen. Of note, the entire length of the ureter appeared to be well dilated. Because of that I decided not to leave another stent. The guidewire was then removed and the bladder emptied of all fluids and this marked the conclusion of the procedure. The patient was then taken out of the dorsal lithotomy position, awakened from anesthesia and transported to the recovery room in stable condition. ESTIMATED BLOOD LOSS: 5 mL COMPLICATIONS: None SPECIMENS: Kidney stone fragments. PLAN: The patient will followup in the clinic in a few weeks for postoperative visit. BRO
[2018-07-16 16:00] VITALS: BP 118/71
[2018-07-16] MEDS ORDERED: LIDOCAINE 5% OINT 30 GM As Ordered ONE (16:34)
== END 2018-07-16 16:10 | disposition home or self-care (01) ==
LOC: M SDC 09:44
PROVIDERS: ATTEND Urology
DX: N20.0 Calculus of kidney (principal); G43.909 Migraine, unspecified, not intractable, without status migrainosus; Z90.710 Acquired absence of both cervix and uterus
CPT/HCPCS: 52356; 74420; 82360; 88300; C1769; C1894; J1100; J1885; J2250; J2405; J2710; J3010; Q9961

== ENCOUNTER → 2018-08-02 | Outpatient (REF) | payer OTHER ==
[~2018-08-02] MED LIST changes: -GLYCOPYRROLATE INJ 0.2 MG/ML 2 ML VIAL As Ordered ONE; -KETOROLAC 60 MG/2 ML VIAL (J1885) As Ordered ONE; -LIDOCAINE 2% INJ 100 MG/5 ML SDV (FOR ANES.) As Ordered ONE; -MIDAZOLAM INJ 2 MG/2 ML VIAL (J2250) As Ordered ONE; -NEOSTIGMINE 10 MG/10 ML VIAL (J2710) As Ordered ONE; -ONDANSETRON 4MG/2ML VIAL (J2405) As Ordered ONE; -PROPOFOL 200 MG/20 ML VIAL As Ordered ONE; -ROCURONIUM BROMIDE 50 MG/5 ML VIAL As Ordered ONE; -dexameTHASONE 4 MG/ML 1ML VIAL (J1100) As Ordered ONE; -fentaNYL 100 MCG/2 ML INJECTION (J3010) As Ordered ONE
[2018-08-02 13:40] LABS: AMORPHOUS SEDIMENT SMALL (NEGATIVE); APPEARANCE, URINE HAZY (CLEAR); BACTERIA, URINE AUTO NEGATIVE (NEGATIVE); BILIRUBIN, URINE AUTO NEGATIVE (NEGATIVE); BLOOD, URINE BLOOD 1+ (NEGATIVE); CALCIUM OXALATE CRYSTALS SMALL; COLOR, URINE YELLOW (YELLOW); GLUCOSE, URINE (UA) AUTO NEGATIVE (NEGATIVE); KETONE, URINE AUTO NEGATIVE (NEGATIVE); LEUKOCYTE ESTERASE, URINE AUTO NEGATIVE (NEGATIVE); MUCUS, URINE SMALL (NEGATIVE); NITRITE, URINE AUTO NEGATIVE (NEGATIVE); PROTEIN, URINE AUTO NEGATIVE (NEGATIVE); RBC, URINE AUTO 1 /HPF (0-3); SPECIFIC GRAVITY URINE AUTO 1.018 (1.002-1.035); SQUAMOUS EPITHELIAL CELL UR AU 0 /HPF (0-6); UROBILINOGEN, URINE AUTO 0.2 mg/dL (0.0-2.0); WBC, URINE AUTO 1 /HPF (0-3)
== END ==
LOC: M SMT 13:00
PROVIDERS: ATTEND Nurse Practitioner Women's Health
DX: N20.0 Calculus of kidney (principal)

== ENCOUNTER → 2018-08-02 | Outpatient (CLI) | payer BC, OTHER ==
[2018-08-02 10:36] LABS: IONIZED CALCIUM 4.7 MG/DL (4.5-5.3)
[2018-08-02 11:19] LABS: BLOOD UREA NITROGEN 14 MG/DL (7-18); CALCIUM LEVEL 8.9 MG/DL (8.5-10.1); CARBON DIOXIDE LEVEL 29 MEQ/L (21-32); CHLORIDE LEVEL 106 MEQ/L (98-107); CREATININE FOR GFR 0.65 MG/DL (0.55-1.30); GLOMERULAR FILTRATION RATE > 60.0 (>60); GLUCOSE, FASTING 91 MG/DL (70-100); MAGNESIUM LEVEL 1.8 MG/DL (1.8-2.4); PHOSPHORUS LEVEL 2.9 MG/DL (2.5-4.9); SODIUM LEVEL 139 MEQ/L (136-145); URIC ACID 4.1 MG/DL (2.6-6.0)
[2018-08-02 11:30] LABS: PTH INTACT 35.5 PG/ML (18.5-88.0)
== END ==
LOC: M SMT 09:27
PROVIDERS: ATTEND Nurse Practitioner Women's Health
DX: N20.0 Calculus of kidney (principal)

== ENCOUNTER → 2019-01-12 | Outpatient (CLI) | payer OTHER ==
[2019-01-12 13:16] LABS: BASO % 0.4 % (0.0-1.0); EOS % 0.5 % (0.0-3.0); HEMATOCRIT 39.3 % (36.0-47.0); HEMOGLOBIN 12.9 g/dl (12.0-15.5); LYMPH # 2.3 10^3/uL (1.5-5.0); MEAN CORPUSCULAR HEMOGLOBIN 31.7 pg (27.0-33.0); MEAN CORPUSCULAR HGB CONC 32.8 g/dl (32.0-36.5); MEAN CORPUSCULAR VOLUME 96.6 fl (80.0-96.0); MONO # 0.6 10^3/uL (0.0-0.8); MONO % 7.4 % (0.0-5.0); NEUTROPHILS # 5.4 10^3/uL (1.5-8.5); NEUTROPHILS % 64.5 % (36.0-66.0); PLATELET COUNT, AUTOMATED 293 10^3/uL (150-450); RED BLOOD COUNT 4.07 10^6/uL (4.00-5.40)
[2019-01-12 13:23] LABS: FREE T4 1.12 NG/DL (0.76-1.46)
[2019-01-12 13:24] LABS: LUTEINIZING HORMONE 5.2 mIU/mL
[2019-01-12 13:25] LABS: FOLLICLE STIMULATING HORMONE 7.2 mIU/mL
[2019-01-13 06:31] LABS: WHITE BLOOD COUNT 8.4 10^3/uL (4.0-10.0)
[2019-01-13 06:32] LABS: THYROID STIMULATING HORMONE 1.6 uIU/ML (0.358-3.740)
== END ==
LOC: M SMT 10:13
PROVIDERS: ATTEND Obstetrics & Gynecology
DX: R00.2 Palpitations (principal)

== ENCOUNTER → 2019-05-07 | Outpatient (REF) | payer OTHER | LOC: M SFHCLERA 09:50 | PROVIDERS: ATTEND Nurse Practitioner Family | DX: J02.9 Acute pharyngitis, unspecified (principal) ==

== ENCOUNTER → 2021-08-10 | Outpatient (CLI) | payer BC, OTHER ==
[~2021-08-10] MED LIST changes: +ACET32TAB PO; -NON-325T5 PO
[2021-08-10 09:31] LABS: BASO % 0.3 % (0.0-1.0); EOS # 0.2 10^3/uL (0.0-0.5); EOS % 2.6 % (0.0-3.0); HEMATOCRIT 38.6 % (36.0-47.0); HEMOGLOBIN 12.8 g/dl (12.0-15.5); LYMPH # 2.4 10^3/uL (1.5-5.0); LYMPH % 26.1 % (24.0-44.0); MEAN CORPUSCULAR HEMOGLOBIN 32.2 pg (27.0-33.0); MEAN CORPUSCULAR HGB CONC 33.2 g/dl (32.0-36.5); MONO # 0.8 10^3/uL (0.0-0.8); MONO % 8.7 % (2.0-8.0); NEUTROPHILS # 5.7 10^3/uL (1.5-8.5); NEUTROPHILS % 62.1 % (36.0-66.0); PLATELET COUNT, AUTOMATED 275 10^3/uL (150-450); RED BLOOD COUNT 3.98 10^6/uL (4.00-5.40); WHITE BLOOD COUNT 9.2 10^3/uL (4.0-10.0)
[2021-08-10 10:05] LABS: BLOOD UREA NITROGEN 17 MG/DL (7-18); CREATININE FOR GFR 0.63 MG/DL (0.55-1.30); GLUCOSE, FASTING 91 MG/DL (70-100)
[2021-08-10 10:06] LABS: ALBUMIN 3.7 GM/DL (3.2-5.2); ALT/SGPT 28 U/L (12-78); BILIRUBIN,TOTAL 0.5 MG/DL (0.2-1.0); CALCIUM LEVEL 9.2 MG/DL (8.5-10.1); CARBON DIOXIDE LEVEL 27 MEQ/L (21-32); CHLORIDE LEVEL 109 MEQ/L (98-107); CHOLESTEROL LEVEL 186 MG/DL (<200); FREE T4 0.98 NG/DL (0.76-1.46); GLOMERULAR FILTRATION RATE > 60.0 (>58); HDL CHOLESTEROL 60 MG/DL (>40); LDL CHOLESTEROL 113 MG/DL (<100); NON-HDL-C 126 MG/DL; POTASSIUM SERUM 4.4 MEQ/L (3.5-5.1); SODIUM LEVEL 140 MEQ/L (136-145); TOTAL PROTEIN 7.1 GM/DL (6.4-8.2); TRIGLYCERIDES LEVEL 63 MG/DL (<150)
== END ==
LOC: M EKG 08:20
PROVIDERS: ATTEND Student in an Organized Health Care Education/Training Program
DX: Z00.00 Encounter for general adult medical examination without abnormal findings (principal)

== ENCOUNTER → 2021-09-16 | Outpatient (CLI) | payer BC, OTHER | LOC: M CARPUL 10:47 | PROVIDERS: ATTEND Student in an Organized Health Care Education/Training Program | DX: R00.2 Palpitations (principal) ==

== ENCOUNTER → 2024-03-21 | Outpatient (CLI) | payer BC | LOC: M PLAIMG 09:06 | PROVIDERS: ATTEND Physician Assistant | DX: J32.8 Other chronic sinusitis (principal) ==

== ENCOUNTER 2024-06-01 20:12 | Inpatient (IN) | payer BC, OTHER ==
[~2024-06-01] VITALS: Ht 144.8 cm; Wt 82.4 kg
[2024-06-01 21:00] LABS: BASO % 0.2 % (0.0-1.0); HEMATOCRIT 39.5 % (36.0-47.0); HEMOGLOBIN 13.3 g/dl (12.0-15.5); LYMPH # 1.4 10^3/uL (1.5-5.0); LYMPH % 7.1 % (24.0-44.0); MEAN CORPUSCULAR HEMOGLOBIN 31.1 pg (27.0-33.0); MEAN CORPUSCULAR HGB CONC 33.7 g/dl (32.0-36.5); MEAN CORPUSCULAR VOLUME 92.5 fl (80.0-96.0); MONO # 1.2 10^3/uL (0.0-0.8); NEUTROPHILS # 16.9 10^3/uL (1.5-8.5); NEUTROPHILS % 86.3 % (36.0-66.0); PLATELET COUNT, AUTOMATED 347 10^3/uL (150-450); RED BLOOD COUNT 4.27 10^6/uL (4.00-5.40); WHITE BLOOD COUNT 19.6 10^3/uL (4.0-10.0)
[2024-06-01 21:01] LABS: KETONE, URINE AUTO RFX NEGATIVE (NEGATIVE); LEUKOCYTE ESTERASE UR AUTO RFX NEGATIVE (NEGATIVE); MUCUS, URINE RFX MODERATE (NEGATIVE); NITRITE, URINE AUTO RFX NEGATIVE (NEGATIVE); RBC, URINE AUTO RFX 25 /HPF (0-3); SQUAM EPITHELIAL CELL UR AURFX 7 /HPF (0-6); WBC, URINE AUTO RFX 2 /HPF (0-3)
[2024-06-01 21:16] LABS: INR 0.99; PARTIAL THROMBOPLASTIN TIME 28.8 SECONDS (24.8-34.2); PROTHROMBIN TIME 13.4 SECONDS (12.5-14.5)
[2024-06-01] MEDS: ONDANSETRON 4MG 2ML VIAL IV ONE (21:27)
[2024-06-01] MEDS: KETOROLAC 30 MG/ML 1ML VIAL IV ONE (21:28)
[2024-06-01] MEDS: ACETAMINOPHEN *IV* 1,000 MG in IV 1 EA IV ONE (21:28)
[2024-06-01] MEDS: NS (Normal Saline) 0.9% 1,000 ML IV ONE ×2 (21:28→23:28)
[2024-06-01 21:33] LABS: LIPASE 39 U/L (12-53)
[2024-06-01 21:35] LABS: AMYLASE 64 U/L (30-118)
[2024-06-01 21:36] LABS: C REACTIVE PROTEIN QUANTITATIV 3.82 MG/DL (<1.0)
[2024-06-01 21:42] LABS: PROCALCITONIN 0.09 ng/ml
[2024-06-01 21:54] LABS: HCG, SERUM QUALITATIVE NEGATIVE (NEGATIVE)
[2024-06-01 22:41] LABS: ALBUMIN 3.8 G/DL (3.2-5.2); ALKALINE PHOSPHATASE 79 U/L (35-104); ALT/SGPT 30 U/L (7.0-40); AST/SGOT 13 U/L (<34); BILIRUBIN,DIRECT 0.2 MG/DL (<0.4); BILIRUBIN,TOTAL 0.8 MG/DL (0.3-1.2); TOTAL PROTEIN 7.4 G/DL (5.7-8.2)
[2024-06-01] MEDS ORDERED: ISOVUE-370 76% 100ML VIAL As Ordered ONE (23:06)
[2024-06-01] MEDS: PIPERACILLIN/TAZOBACTAM SOD 4.5 GM in DEXTROSE 5% (D5W) ADV/MINI-BAG 50 ML IV ONE (23:28)
[2024-06-02] MEDS: NS 500 ML IV ONE (01:08)
[2024-06-02] MEDS ORDERED: ACETAMINOPHEN 325 MG TAB PO PRN (01:15)
[2024-06-02] MEDS: NS (Normal Saline) 0.9% 1,000 ML IV ONE (01:36)
[2024-06-02] MEDS ORDERED: MED REC IN PROGRESS XX SCH (01:45)
[2024-06-02] MEDS: NS (Normal Saline) 0.9% 1,000 ML IV SCH (03:00)
[2024-06-02] MEDS: ACETAMINOPHEN *IV* 1,000 MG in IV 1 EA IV ONE (04:41)
[2024-06-02] MEDS ORDERED: KETOROLAC 30 MG/ML 1ML VIAL IV PRN (05:00)
[2024-06-02] MEDS: ONDANSETRON 4MG 2ML VIAL IV PRN (05:10)
[2024-06-02] MEDS: PIPERACILLIN/TAZOBACTAM SOD 3.375 GM in DEXTROSE 5% (D5W) ADV/MINI-BAG 50 ML IV SCH (05:58)
[2024-06-02 06:21] LABS: BLOOD UREA NITROGEN 13 MG/DL (9-23); C REACTIVE PROTEIN QUANTITATIV 5.47 MG/DL (<1.0); CALCIUM LEVEL 7.1 MG/DL (8.5-10.1); CARBON DIOXIDE LEVEL 22 MMOL/L (20-31); CHLORIDE LEVEL 110 MMOL/L (98-107); CREATININE FOR GFR 0.56 MG/DL (0.55-1.30); GLOMERULAR FILTRATION RATE > 60.0 (>58); GLUCOSE, FASTING 100 MG/DL (60-100); POTASSIUM SERUM 3.9 MMOL/L (3.5-5.1); SODIUM LEVEL 140 MMOL/L (136-145)
[2024-06-02] MEDS: PANTOPRAZOLE 40MG VIAL IV SCH (06:27)
[2024-06-02] MEDS: LR 1,000 ML IV ONE (08:01)
[2024-06-02] MEDS: ENOXAPARIN 40MG/0.4ML SYRINGE (J1650 PER 10MG) SC SCH (08:01)
[2024-06-02] MEDS: AMPICILLIN SOD/SULBACTAM SOD 3 GM in DEXTROSE 5% (D5W) MINI-BAG PLU 100 ML IV SCH (08:02)
[2024-06-02 08:29] LABS: BASO % 0.1 % (0.0-1.0); EOS % 0.1 % (0.0-3.0); HEMATOCRIT 32.5 % (36.0-47.0); LYMPH # 1.9 10^3/uL (1.5-5.0); LYMPH % 12.1 % (24.0-44.0); MEAN CORPUSCULAR HEMOGLOBIN 30.8 pg (27.0-33.0); MEAN CORPUSCULAR HGB CONC 32.6 g/dl (32.0-36.5); MEAN CORPUSCULAR VOLUME 94.5 fl (80.0-96.0); MONO # 1.3 10^3/uL (0.0-0.8); MONO % 8.3 % (2.0-8.0); NEUTROPHILS # 12.1 10^3/uL (1.5-8.5); PLATELET COUNT, AUTOMATED 266 10^3/uL (150-450); RED BLOOD COUNT 3.44 10^6/uL (4.00-5.40); WHITE BLOOD COUNT 15.3 10^3/uL (4.0-10.0)
[2024-06-02 08:32] LABS: HEMOGLOBIN 10.6 g/dl (12.0-15.5)
[2024-06-02] MEDS ORDERED: ZYRT10TA12 PO (10:01)
[2024-06-02] MEDS: SCOPOLAMINE 1MG TRANSDERMAL PATCH TOP SCH (10:02)
[2024-06-02] MEDS: KETOROLAC 30 MG/ML 1ML VIAL IV SCH (10:02)
[2024-06-02] MEDS: ONDANSETRON 4MG 2ML VIAL IV SCH (10:03)
[2024-06-02] MEDS ORDERED: HOME MED LIST COMPLETE! XX SCH (10:05)
[2024-06-02] MEDS: SUMAtriptan SUCCINATE 50MG TABLET PO ONE (11:56)
[2024-06-02] MEDS: CAFFEINE CITRATE 60MG/3ML *ORAL SOLUTION PO SCH (13:01)
[2024-06-02] MEDS: ACETAMINOPHEN 500 MG TAB PO SCH (13:02)
[2024-06-02] MEDS: METOCLOPRAMIDE INJ 10MG/2ML VIAL IV PRN (13:40)
[2024-06-02 14:00] VITALS: BP 103/55; TEMP 100.7; O2SAT 94
[2024-06-02] MEDS: SUMAtriptan SUCCINATE 50MG TABLET PO PRN (14:33)
[2024-06-02 16:00] VITALS: BP 111/58; TEMP 98.4; O2SAT 96
[2024-06-02 19:56] VITALS: BP 91/50; TEMP 96.1; O2SAT 95
[2024-06-02 20:32] VITALS: BP 90/50; TEMP 98.1; O2SAT 96
[2024-06-02] MEDS: CEPACOL LOZENGE PO PRN (20:57)
[2024-06-02 21:00] VITALS: BP 88/50; TEMP 99; O2SAT 95
[2024-06-03] VITALS (9 sets, daily range): BP systolic 86–104; BP diastolic 50–65; TEMP 98–99; O2SAT 92–97
[2024-06-03] MEDS: NS 500 ML IV ONE ×2 (01:41→02:58)
[2024-06-03 05:54] LABS: BLOOD UREA NITROGEN 6 MG/DL (9-23); CARBON DIOXIDE LEVEL 21 MMOL/L (20-31); CHLORIDE LEVEL 114 MMOL/L (98-107); CREATININE FOR GFR 0.55 MG/DL (0.55-1.30); GLOMERULAR FILTRATION RATE > 60.0 (>58); GLUCOSE, FASTING 93 MG/DL (60-100); SODIUM LEVEL 143 MMOL/L (136-145)
[2024-06-03 06:13] LABS: HEMATOCRIT 30.6 % (36.0-47.0); MEAN CORPUSCULAR HEMOGLOBIN 31.3 pg (27.0-33.0); MEAN CORPUSCULAR HGB CONC 32.7 g/dl (32.0-36.5); MEAN CORPUSCULAR VOLUME 95.6 fl (80.0-96.0); PLATELET COUNT, AUTOMATED 240 10^3/uL (150-450); WHITE BLOOD COUNT 14.5 10^3/uL (4.0-10.0)
[2024-06-03] MEDS: MIDODRINE 5 MG TAB PO SCH (08:45)
[2024-06-03] MEDS: METOCLOPRAMIDE INJ 10MG/2ML VIAL IV SCH (08:47)
[2024-06-03 08:49] LABS: CORTISOL AM 15.3 UG/DL (4.3-22.4)
[2024-06-03 08:55] LABS: ALBUMIN 2.4 G/DL (3.2-5.2); ALKALINE PHOSPHATASE 57 U/L (35-104); ALT/SGPT 22 U/L (7.0-40); AST/SGOT 16 U/L (<34); BILIRUBIN,DIRECT 0.1 MG/DL (<0.4); BILIRUBIN,TOTAL 0.3 MG/DL (0.3-1.2); TOTAL PROTEIN 5.2 G/DL (5.7-8.2)
[2024-06-03] MEDS: ONDANSETRON 4MG 2ML VIAL IV SCH (13:34)
[2024-06-03] MEDS: KETOROLAC 30 MG/ML 1ML VIAL IV SCH (15:37)
[2024-06-03 16:55] LABS: THYROID STIMULATING HORMONE 2.995 uIU/ML (0.55-4.78)
[2024-06-04] VITALS: BP 98/57; TEMP 98.1; O2SAT 95
[2024-06-04 04:00] VITALS: BP 109/65; TEMP 98.2; O2SAT 95
[2024-06-04 07:12] LABS: HEMOGLOBIN 9.6 g/dl (12.0-15.5); MEAN CORPUSCULAR HEMOGLOBIN 30.8 pg (27.0-33.0); MEAN CORPUSCULAR VOLUME 96.2 fl (80.0-96.0); PLATELET COUNT, AUTOMATED 245 10^3/uL (150-450); RED BLOOD COUNT 3.12 10^6/uL (4.00-5.40)
[2024-06-04 09:00] VITALS: BP 100/59; TEMP 98.1
[2024-06-04] MEDS ORDERED: ONDA-282 PO (09:31)
[2024-06-04] MEDS ORDERED: AMOX875T2 PO (09:31)
[2024-06-04] MEDS ORDERED: IMIT50TA PO (09:31)
[2024-06-04] MEDS ORDERED: TRAN1DIS4 TOP (09:31)
== END 2024-06-04 10:22 | disposition home or self-care (01) | DRG 113 ==
LOC: M ED 20:12 → M ED INP 20:13 → M MS4PR 06-02 14:06 → OBSVTOIN 06-03 07:19 → INTOOBSV 06-03 07:19 → M MS5PR 06-03 15:00 → M MS4PR 06-03 15:00 → UNDODISIN 06-04 10:22
PROVIDERS: ADMIT Student in an Organized Health Care Education/Training Program; ATTEND Student in an Organized Health Care Education/Training Program
DX: J02.0 Streptococcal pharyngitis (principal); I80.8 Phlebitis and thrombophlebitis of other sites; I95.9 Hypotension, unspecified; G43.901 Migraine, unspecified, not intractable, with status migrainosus; E78.5 Hyperlipidemia, unspecified; J32.9 Chronic sinusitis, unspecified; R11.2 Nausea with vomiting, unspecified; N20.0 Calculus of kidney; I10 Essential (primary) hypertension; R59.0 Localized enlarged lymph nodes

== ENCOUNTER → 2024-08-01 | Outpatient (REF) | payer BC ==
[~2024-08-01] MED LIST changes: +AMOX875T2 PO; +IMIT50TA PO; +ONDA-282 PO; +TRAN1DIS4 TOP; +ZYRT10TA12 PO
[2024-08-01 18:17] LABS: APPEARANCE, URINE CLEAR (CLEAR); BACTERIA, URINE AUTO NEGATIVE (NEGATIVE); BILIRUBIN, URINE AUTO NEGATIVE (NEGATIVE); BLOOD, URINE BLOOD 1+ (NEGATIVE); COLOR, URINE YELLOW (YELLOW); GLUCOSE, URINE (UA) AUTO NEGATIVE (NEGATIVE); KETONE, URINE AUTO NEGATIVE (NEGATIVE); LEUKOCYTE ESTERASE, URINE AUTO NEGATIVE (NEGATIVE); MUCUS, URINE SMALL (NEGATIVE); NITRITE, URINE AUTO NEGATIVE (NEGATIVE); PROTEIN, URINE AUTO NEGATIVE (NEGATIVE); RBC, URINE AUTO 3 /HPF (0-3); SPECIFIC GRAVITY URINE AUTO 1.024 (1.002-1.035); SQUAMOUS EPITHELIAL CELL UR AU 2 /HPF (0-6); UROBILINOGEN, URINE AUTO 0.2 mg/dL (0.0-2.0); WBC, URINE AUTO 0 /HPF (0-3)
== END ==
LOC: M SMT 17:03
PROVIDERS: ATTEND Nurse Practitioner Family
DX: R10.9 Unspecified abdominal pain (principal)

== ENCOUNTER → 2024-08-16 | Outpatient (CLI) | payer BC | LOC: M RAD 13:46 | PROVIDERS: ATTEND Nurse Practitioner Family | DX: Z87.442 Personal history of urinary calculi (principal) ==